=== PATIENT | female | born 1990 | race Two or more races ===

== ENCOUNTER 2022-11-11 14:19 | Outpatient (CLI) | payer OTHER | END 2022-11-11 14:39 | disposition home or self-care (01) | LOC: MAMO-SONO 14:19 | PROVIDERS: ATTEND Obstetrics & Gynecology | DX: Z12.39 Encounter for other screening for malignant neoplasm of breast (principal) ==

== ENCOUNTER 2023-09-20 08:54 | Emergency (ER) | payer OTHER ==
[~2023-09-20] VITALS: Ht 160 cm; Wt 64.4 kg
[2023-09-20 09:57] LABS: HEMATOCRIT 40.3 % (36.0-45.00); HEMOGLOBIN 13.9 g/dL (12.0-15.00); MEAN CELL VOLUME 89.5 fL (80.00-100.00); MEAN CORPUSCULAR HGB CONC 34.6 g/dl (32.0-36.0); PLATELET COUNT 293 K/uL (150-450); RED CELL DISTRIBUTION WIDTH 13.1 % (11.5-14.5)
[2023-09-20] MEDS ORDERED: ALLEGRA ALLERG180 MG PO (10:48)
== END 2023-09-20 11:15 | disposition home or self-care (01) ==
LOC: ER 08:54
PROVIDERS: General Practice
DX: R21 Rash and other nonspecific skin eruption (principal); Z20.822 Contact with and (suspected) exposure to COVID-19

== ENCOUNTER 2023-09-22 07:44 | Emergency (ER) | payer OTHER ==
[~2023-09-22] VITALS: Ht 160 cm; Wt 64.4 kg
[~2023-09-22 07:44] MED LIST: ALLEGRA ALLERG180 MG PO
[2023-09-22 09:26] LABS: HEMATOCRIT 41.6 % (36.0-45.00); HEMOGLOBIN 13.9 g/dL (12.0-15.00); MEAN CELL VOLUME 91.8 fL (80.00-100.00); MEAN CORPUSCULAR HEMOGLOBIN 30.7 pg (27.00-32.0); MEAN CORPUSCULAR HGB CONC 33.5 g/dl (32.0-36.0); PLATELET COUNT 317 K/uL (150-450); RED BLOOD COUNT 4.53 M/uL (4.00-6.00)
[2023-09-22] MEDS ORDERED: DUI500 PO (11:45)
== END 2023-09-22 12:14 | disposition home or self-care (01) ==
LOC: ER 07:44
PROVIDERS: General Practice
DX: R21 Rash and other nonspecific skin eruption (principal)

== ENCOUNTER 2023-12-13 14:34 | Outpatient (CLI) | payer OTHER ==
[~2023-12-13 14:34] MED LIST changes: +DUI500 PO
== END 2023-12-13 14:36 | disposition home or self-care (01) ==
LOC: SONOGRAMA 14:34
PROVIDERS: ATTEND Obstetrics & Gynecology
DX: Z12.39 Encounter for other screening for malignant neoplasm of breast (principal); N64.4 Mastodynia